=== PATIENT | male | born 2000 | race Caucasian/White ===

== ENCOUNTER 2023-08-04 10:44 | Emergency (ER) | payer BC ==
[2023-08-04] MEDS: Sodium Chloride 0.9% 10 ML Syringe FLUSH PRN (11:17)
[2023-08-04 11:23] LABS: BASOPHILS PERCENT AUTO 0.3 % (0.0-1.0); EOSINOPHILS PERCENT AUTO 0.1 % (1.0-3.0); HEMATOCRIT 47.9 % (40.0-54.0); LYMPHOCYTES PERCENT AUTO 13.6 % (20.5-50.1); MEAN CORPUSCULAR HEMOGLOBIN 29.8 pg (27.0-34.0); MEAN CORPUSCULAR HGB CONC 35.5 g/dL (33.0-35.0); MEAN CORPUSCULAR VOLUME 83.9 fL (80-100); MONOCYTES PERCENT AUTO 7.9 % (2-8); NEUTROPHILS PERCENT AUTO 78.1 % (42.2-75.2); PLATELET COUNT,PLT 226 10^3/uL (150-450); RED BLOOD CELL COUNT 5.71 10^6/uL (4.6-6.2); WHITE BLOOD CELL COUNT,WBC 7.9 10^3/uL (5.0-10.0)
[2023-08-04 11:42] LABS: INR 1.1 (0.9-1.2); PTT,PARTIAL THROMBOPLSTIN TIME 27.2 SEC (22.0-34.0)
[2023-08-04 11:49] LABS: LACTIC ACID 2.9 mmol/L (0.4-2.0)
[2023-08-04 11:58] LABS: B-TYPE NATRIURETIC PEPTIDE,BNP 11 pg/ml (0-100)
[2023-08-04] MEDS: Sodium Chloride 0.9% 1,000 ML IV ONE (12:01)
[2023-08-04 12:02] LABS: A/G RATIO 1.4; ALANINE AMINOTRANSFERASE,ALT 20 U/L (16-63); ALBUMIN 4.7 g/dL (3.4-5.0); ALKALINE PHOSPHATASE 55 U/L (46-116); ANION GAP 13.6 mEq/L (7-13); ASPARTATE AMNIOTRANSFERASE,AST 14 U/L (15-37); BILIRUBIN TOTAL 0.6 mg/dL (0.2-1.0); BLOOD UREA NITROGEN,BUN 13 mg/dL (7-18); CALCIUM 9.4 mg/dL (8.5-10.1); CARBON DIOXIDE,CO2 25 mmol/L (21-32); CHLORIDE,CL 104 mmol/L (98-107); GLUCOSE RANDOM 125 mg/dL (70-99); MAGNESIUM 1.8 mg/dL (1.8-2.4); POTASSIUM,K 3.6 mmol/L (3.5-5.1); SODIUM,NA 139 mmol/L (136-145); TSH ULTRASENSITIVE 1.62 uIU/mL (0.36-3.74)
[2023-08-04 12:16] LABS: C-REACTIVE PROTEIN < 0.50 ng/dL (<=0.50); ESTIMATED GFR 110 mL/min (>=60); ETHANOL BLOOD MEDICAL < 3 mg/dL (0)
[2023-08-04 12:17] LABS: D-DIMER QUANTITATIVE < 100 ng/mL (0-400)
[2023-08-04 12:34] LABS: APPEARANCE,URINE CLEAR (CLEAR); BILIRUBIN,URINE NEGATIVE (NEGATIVE); COLOR,URINE YELLOW (YELLOW); GLUCOSE,URINE NEGATIVE (NEGATIVE); KETONES,URINE NEGATIVE (NEGATIVE); LEUKOCYTE ESTERASE,URINE TRACE (NEGATIVE); NITRITE,URINE NEGATIVE (NEGATIVE); OCCULT BLOOD,URINE NEGATIVE (NEGATIVE); PH,URINE 8.5 (5.0-9.0); PROTEIN,URINE NEGATIVE (NEGATIVE); UROBILINOGEN,URINE 0.2 mg/dL (0.2-1.0)
[2023-08-04] MEDS: hydrOXYzine HCl 25 MG Tab PO ONE (12:35)
[2023-08-04 12:38] LABS: AMPHETAMINES,URINE NEGATIVE (NEGATIVE); BARBITURATES,URINE NEGATIVE (NEGATIVE); BENZODIAZEPINE,URINE NEGATIVE (NEGATIVE); MDMA (ECSTASY), URINE NEGATIVE (NEGATIVE); METHADONE,URINE NEGATIVE (NEGATIVE); METHAMPHETAMINES,URINE NEGATIVE (NEGATIVE); OPIATES,URINE NEGATIVE (NEGATIVE); OXYCODONE,URINE NEGATIVE (NEGATIVE); PHENCYCLIDINE,URINE NEGATIVE (NEGATIVE); TCA,URINE NEGATIVE (NEGATIVE)
[2023-08-04 12:52] LABS: BACTERIA,URINE FEW /HPF (0-FEW/HPF); EPITHELIAL CELLS,URINE RARE /HPF (NOT SEEN); RBC,URINE 0-5 /HPF (0-5); WBC,URINE 0-5 /HPF (0-5/HPF)
== END 2023-08-04 13:22 | disposition home or self-care (01) ==
LOC: DL.ED 10:44
DX: F41.9 Anxiety disorder, unspecified (principal); R00.2 Palpitations
CPT/HCPCS: 36415; 71045; 80053; 80305; 80307; 81001; 82947; 83605; 83735; 83880; 84145; 84443; 84484; 85025; 85379; 85610; 85730; 86140; 87086; 93005; 96360; 99285; A9270; J7030; J3490